=== PATIENT | female | born 1990 | race Caucasian/White ===

== ENCOUNTER 2019-07-17 19:53 | Emergency (ER) | payer SELFPAY ==
[2019-07-17 20:14] VITALS: BP 150/91; PULSE 88; RESP 18; TEMP 37.4; O2SAT 98; BMI 37.4
--- NOTE | 2019-07-17 21:04 | ED_ITS ---
Entered by Radha Pablo, acting as scribe for Deepika Riddle MD Jul 17, 2019 19:53 HPI - General Adult General: Chief complaint: General Medical Stated complaint: 10 weeks preg/cramping Time Seen by Provider: 07/17/19 21:04 Source: patient Mode of arrival: ambulatory Limitations: no limitations History of Present Illness: HPI narrative: 29 yo f came to the er pov for cramping and is 10 weeks . Pt is having cramping in the lower abd. Pt is not in any pain at the moment, Pt is having some normal discharge. Pt said that the cramping it comes and goes. complaint: 10 weeks cramping Location: abdomen (lower abd) Radiation: non-radiation Severity: mild Severity scale (1-10): 1 (no pain) Associated symptoms: Reports no associated symptoms; Deny chest pain, dyspnea, headache(s) or rash Treatments prior to arrival: none Review of Systems General: Reports: other (negative unless marked) Const: Denies: fever ENMT: Denies: throat pain Card: Denies: chest pain Resp: Denies: shortness of breath GI: Reports: abdominal pain (lower abd cramping) and cramping : Denies: flank pain Musc: Denies: neck pain Skin/Breast: Denies: rash Neuro: Denies: headache PFSH ED PFSH: Social History Smoking and tobacco status: current some day smoker Physical Exam Const: COMMON NORMALS: no apparent distress, oriented x3 and healthy appearing HENMT: COMMON NORMALS: normocephalic and head/scalp atraumatic HEAD & SCALP: normocephalic and atraumatic Eye: COMMON NORMALS: PERRL and EOMs intact bilaterally PUPIL: Yes PERRL Neck/C-Spine: COMMON NORMALS: full ROM and supple Chest: COMMONS NORMALS: inspection of chest normal and palpation of chest normal Resp: COMMON NORMALS: normal respiratory effort, no retractions, no use of accessory muscles and clear to auscultation bilaterally AUSCULTATION: clear to auscultation bilaterally Cardio: COMMON NORMALS: regular rate, regular rhythm and no murmurs RATE: regular rate RHYTHM: regular rhythm GI: COMMON NORMALS: normal to inspection, nondistended, normoactive bowel sounds, soft to palpation, non-tender and no masses PALPATION: Yes soft Extremity: COMMON NORMALS: normal to inspection and full ROM Neuro: COMMON NORMALS: oriented x3, moves all extremities and no focal motor deficits Psych: COMMON NORMALS: mental status grossly normal, thought process normal and cooperative THOUGHT PROCESS: normal thought process Skin: COMMON NORMALS: no rashes or lesions noted and no wounds GENERAL SKIN EXAM: no rashes or lesions noted Course Vital Signs: Vital signs: Vital Signs Temperature 99.3 F 07/17/19 20:14 Pulse Rate 76 07/17/19 22:04 Respiratory Rate 14 07/17/19 22:04 Blood Pressure 132/80 07/17/19 22:04 Pulse Oximetry 99 07/17/19 22:04 MDM - General Adult MDM Narrative: Medical decision making narrative: Patient presents here with abdominal cramping in . Patient urinalysis is normal. Patient's bedside ultrasound here showed an IUP consistent with dates. heart rate was in the 150s. Patient is stable for discharge and is to follow-up with primary care doctor in 3 to 5 days return to ER if worsening. Lab Data: Labs: Lab Results 07/17/19 07/17/19 Range/Units 20:48 20:54 Ser , [place]nt 20537.00 mIU/mL Urine Color Yellow (Yellow) Urine Appearance Hazy A (CLEAR) Urine pH 7 (5-7) Ur Specific Gravit y 1.015 (1.005-1.030) Urine Protein Neg (Negative) Urine Glucose (UA) Norm (Normal) Urine Ketones Negative (Negative) Urine Blood Neg (Negative) Urine Nitrate Negative (Negative) Urine Bilirubin Neg (NEGATIVE) Urine Urobilinogen Norm (Negative) mg/dL Ur Leukocyte Jyothi ase Negative (Negative) Urine RBC None (0-2) /hpf Urine WBC 0-4 H (0-5) /hpf Ur Squamous Epith Cells Rare (0-5) Urine Bacteria 2+ H (NONE) Discharge Plan Discharge Patient Disposition: Home, Self-Care Clinical Impression: Abdominal pain affecting Condition: Stable Prescriptions: No Action 28-800 mg-mcg Tablet 1 tab PO DAILY RF: 0 Discharge Orders: Discharge Order (Routine); Ordered 07/17/19 Ordered By: Deepika Riddle Referrals: Iliana Alejandra [Family Provider] - Discharge Diet: Advance as tolerated Discharge Activity: Resume usual activity Patient Instructions: Abdominal Pain (ED) Discharge Date/Time: 07/17/19 22:05 Coding Level of Care Code ED Oven Laborer for Chg Fwd The documentation recorded by the Samy lizarraga Stephanie Lyn, accurately reflects the service I personally performed and the decisions made by , Deepika Riddle MD Jul 17, 2019 19:53
[2019-07-17 21:24] LABS: Add Urine Microscopic? YES; Bilirubin Urine Neg (NEGATIVE); Blood Urine Neg (Negative); Glucose Urine UA Norm (Normal); Ketones Urine Negative (Negative); Leukocyte Esterase Urine Negative (Negative); Nitrate Urine Negative (Negative); Protein Urine Neg (Negative); Specific Gravity, Urine 1.015 (1.005-1.030); Urine Appearance Hazy (CLEAR); Urine Color Yellow (Yellow); Urobilinogen Urine Norm (Negative); pH Urine 7 (5-7)
[2019-07-17 21:32] LABS: Add Urine Culture? No; Bacteria Urine 2+; Squamous Epithelial Cell Urine RARE (0-5); WBC Urine 0-4 /hpf (0-5)
[2019-07-17 22:04] VITALS: BP 132/80; PULSE 76; RESP 14; O2SAT 99
== END 2019-07-17 22:05 | disposition home or self-care (01) ==
PROVIDERS: Emergency Medicine; Emergency Provider Emergency Medicine; Family Provider Nurse Practitioner Family
DX: O26.891 Other specified pregnancy related conditions, first trimester (principal); R10.9 Unspecified abdominal pain; O99.331 Smoking (tobacco) complicating pregnancy, first trimester; Z3A.10 10 weeks gestation of pregnancy
CPT/HCPCS: 12345; 36415; 81001; 84702; 99281; 99282

== ENCOUNTER 2019-11-08 10:30 | Observation (INO) | payer MEDICAID, SELFPAY ==
[2019-11-08 10:30] VITALS: BMI 38.7
[2019-11-08 10:41] VITALS: BP 118/60; PULSE 75
[2019-11-08 10:53] VITALS: BP 118/60; PULSE 86; RESP 20; TEMP 36.8
--- NOTE | 2019-11-10 13:09 | PC.RESP ---
Smoking Cessation information sent to patient.
== END 2019-11-08 11:32 | disposition home or self-care (01) ==
PROVIDERS: Admitting Provider Family Medicine; PCP Family Medicine; Visit Provider Family Medicine
DX: O36.8190 Decreased fetal movements, unspecified trimester, not applicable or unspecified (principal); Z3A.00 Weeks of gestation of pregnancy not specified
CPT/HCPCS: 99211; G0378; G0379

== ENCOUNTER 2020-01-01 11:35 | Outpatient (CLI) | payer MEDICAID, SELFPAY ==
[2020-01-01 11:43] VITALS: RESP 18; TEMP 36.3
[2020-01-01 11:48] VITALS: BMI 38.0
[2020-01-01 12:02] VITALS: BP 124/68; PULSE 92
[2020-01-01 12:17] VITALS: BP 121/74; PULSE 88
[2020-01-01 12:48] VITALS: RESP 18; TEMP 36.3
== END 2020-01-01 12:25 | disposition home or self-care (01) ==
LOC: OPOB 11:39 → OBGYN 11:40
PROVIDERS: PCP Family Medicine; Visit Provider Family Medicine
DX: O24.419 Gestational diabetes mellitus in pregnancy, unspecified control (principal); Z3A.00 Weeks of gestation of pregnancy not specified
CPT/HCPCS: 59025; 99211

== ENCOUNTER 2020-01-08 10:10 | Outpatient (CLI) | payer MEDICAID, SELFPAY ==
[2020-01-08 10:19] VITALS: BMI 38.2
[2020-01-08 10:24] VITALS: BP 144/67; PULSE 93
[2020-01-08 10:40] VITALS: BP 140/72; PULSE 94
[2020-01-08 10:57] VITALS: PULSE 90; O2SAT 98
[2020-01-08 11:02] VITALS: PULSE 91; O2SAT 98
[2020-01-08 11:07] VITALS: BP 140/72; PULSE 91; RESP 17; TEMP 36.7; O2SAT 98
== END 2020-01-08 11:07 | disposition home or self-care (01) ==
LOC: OPOB 10:17 → OBGYN 10:18
PROVIDERS: PCP Family Medicine; Visit Provider Family Medicine
DX: O24.419 Gestational diabetes mellitus in pregnancy, unspecified control (principal); Z3A.00 Weeks of gestation of pregnancy not specified
CPT/HCPCS: 59025; 99211

== ENCOUNTER 2020-01-15 10:11 | Outpatient (CLI) | payer MEDICAID, SELFPAY ==
[2020-01-15 10:11] VITALS: BMI 37.9
[2020-01-15 10:31] VITALS: TEMP 36.3
[2020-01-15 10:41] VITALS: BP 132/78; PULSE 84
[2020-01-15 10:56] VITALS: BP 136/80; PULSE 86
== END 2020-01-15 11:10 | disposition home or self-care (01) ==
LOC: OPOB 10:16 → OBGYN 10:22
PROVIDERS: PCP Family Medicine; Visit Provider Family Medicine
DX: O26.899 Other specified pregnancy related conditions, unspecified trimester (principal); Z3A.00 Weeks of gestation of pregnancy not specified; R10.9 Unspecified abdominal pain
CPT/HCPCS: 59025; 99211

== ENCOUNTER 2020-01-22 09:52 | Outpatient (CLI) | payer MEDICAID, SELFPAY ==
[2020-01-22 10:00] VITALS: RESP 18; TEMP 36.9
[2020-01-22 10:18] VITALS: BP 144/73; PULSE 88
[2020-01-22 10:33] VITALS: BP 149/81; PULSE 81
[2020-01-22 10:48] VITALS: BP 146/73; PULSE 91
[2020-01-22 10:52] VITALS: BMI 38.4
[2020-01-22 10:55] VITALS: BP 146/73; PULSE 91; RESP 18
== END 2020-01-22 11:00 | disposition home or self-care (01) ==
LOC: OPOB 09:58 → OBGYN 09:59
PROVIDERS: PCP Family Medicine; Visit Provider Family Medicine
DX: O24.419 Gestational diabetes mellitus in pregnancy, unspecified control (principal); Z3A.00 Weeks of gestation of pregnancy not specified
CPT/HCPCS: 59025

== ENCOUNTER 2020-01-29 09:51 | Outpatient (CLI) | payer MEDICAID, SELFPAY ==
[2020-01-29 10:05] VITALS: BP 148/92; PULSE 90
[2020-01-29 10:20] VITALS: BP 143/90; PULSE 92
[2020-01-29 10:35] VITALS: BP 142/87; PULSE 93
[2020-01-29 10:50] VITALS: BP 148/92; PULSE 90; TEMP 36.7
[2020-01-29 10:55] VITALS: BMI 37.9
[2020-01-29 12:48] LABS: Urine Creatinine 52 mg/dL (28-217); Urine Protein Random 6 mg/dL
[2020-01-29 13:33] LABS: UPRO/UCREAT Ratio 0.12 mg/mg CR
== END 2020-01-29 10:53 | disposition home or self-care (01) ==
LOC: OPOB 09:57 → OBGYN 09:59
PROVIDERS: PCP Family Medicine; Visit Provider Family Medicine
DX: O24.419 Gestational diabetes mellitus in pregnancy, unspecified control (principal); Z3A.00 Weeks of gestation of pregnancy not specified
CPT/HCPCS: 59025; 82570; 84156; 99211; J2274; J2795; J3010

== ENCOUNTER 2020-01-29 12:25 | Inpatient (IN) | payer MEDICAID, SELFPAY ==
[2020-01-29] VITALS (93 sets, daily range): BP systolic 0–223; BP diastolic 0–128; PULSE 48–120; RESP 18; TEMP 36.7; O2SAT 89–100; BMI 41.7
[2020-01-29] MEDS: dextrose 5%-lactated ringers 1,000 ML 125 ML IV ×2 (13:24→20:15)
[2020-01-29] MEDS: ampicillin 2,000 MG in sodium chloride 0.9% (plus) 50 ML 100 MG IV (13:26)
[2020-01-29] MEDS: miSOPROStol 100 mcg tablet 25 MCG VAGINAL (13:27)
[2020-01-29 13:56] LABS: Glucose Point of Care 99 mg/dL (70-110)
[2020-01-29 14:02] LABS: Basophils % 0.1 %; Eosinophils % 0.1 %; Hematocrit 37.7 % (37.0-47.0); Hemoglobin 12.7 g/dL (11.5-15.3); Lymphocytes # 1.7 10^3/uL (0.8-4.8); Lymphocytes % 20.7 %; Mean Corpuscular HGB Conc 33.7 g/dL (30.0-36.0); Mean Corpuscular Hemoglobin 29.4 pg (28.0-34.0); Mean Corpuscular Volume 87.3 fL (81-99); Mean Platelet Volume 10.7 fL (7.4-10.4); Monocytes # 0.4 10^3/uL (0.2-0.9); Monocytes % 5.3 %; Neutrophils % 73.4 %; Nucleated Red Blood Cells % 0 %; Platelet Count 236 10^3/cmm (130-400); Red Blood Count 4.32 10^6/uL (4.1-5.3); Red Cell Distribution Width 14.7 % (12.1-15.1); White Blood Count 8.3 10^3/uL (4.0-10.0)
[2020-01-29 14:23] LABS: Alanine Aminotransferase 9 U/L (0-33); Albumin Level 3.6 g/dL (3.5-5.2); Alkaline Phosphatase 134 IU/L (35-105); Anion Gap 16.9 (5-19); Aspartate Amino Transferase 15 U/L (0-32); Blood Urea Nitrogen 12 mg/dL (6-20); Calcium 9.4 mg/dL (8.5-10.5); Carbon Dioxide 18 mmol/L (22-29); Chloride 103 mmol/L (98-107); Globulin 3.4 g/dL (1.3-4.6); Glomerular Filtration Rate 119.9 mL/min (90-130); Glucose 104 mg/dL (65-115); Osmolality Calculated 278 mOsm/kg (285-295); Potassium 3.9 mmol/L (3.5-5.1); Sodium 134 mmol/L (136-145); Total Bilirubin 0.3 mg/dL (0.15-1.2); Uric Acid 7.3 mg/dL (2.4-5.7)
[2020-01-29] MEDS: lactated ringers 1,000 ML 999 ML IV ×2 (16:53→18:51)
[2020-01-29] MEDS: ampicillin 1,000 MG in sodium chloride 0.9% (plus) 50 ML 100 MG IV (16:55)
[2020-01-29] MEDS: labetalol 5 mg/mL SDV 20mL 20 MG IVP (18:39)
--- NOTE | 2020-01-29 19:39 | P.ANESASSM_ITS ---
Pre-Anesthetic Assessment Pre-Anesthetic Assessment: Height/Weight: Height 1.55 m Weight 100.244 kg Temp Pulse BP Pulse Ox 98.0 F 78 172/89 99 01/29/20 12:44 01/29/20 19:36 01/29/20 19:36 01/29/20 19:29 Preop Diagnosis: IUP Proposed Procedure: labor epidural Familial anesthetic complications: denies Was Beta Patsy taken within 24 hours: N/A Last Intake: 00:00 Social: Social History: No alcohol and No tobacco Exam: Pre-Anes Outpt Exam: alert, oriented x 3 and clear to auscultation bilaterally Airway: Submandibular: WNL Cervical ROM: WNL MP: 2 Pulmonary: Pulmonary: None reported CV/HEM: CV/HEM: HTN (with ) : : None reported Hepatic: Hepatic: None reported GI: GI: GERD Metabolic: Metabolic: DM (gestational ) Musc/skel: Musc/skel: None reported Neuropsych: Neuropsych: None reported Meds/Allergies Current Medications: Current Medications Generic Name Dose Route Start Last Admin Trade Name Freq PRN Reason Stop Dose Admin Lactated Ringer's 1,000 mls @ 999 m ls/hr 01/29/20 12:41 01/29/20 18:51 Lactated Ringers IV 999 mls/hr .Q1H1M PRN Administration Per L&D Rescitati on Protocol Dextrose/Lactated Ringer's 1,000 mls @ 125 m ls/hr 01/29/20 12:45 01/29/20 13:24 Dextrose 5%-Lact ated Ringers IV 125 mls/hr .Q8H GLORIA Administration Lactated Ringer's 1,000 mls @ 125 m ls/hr 01/29/20 12:45 01/29/20 16:53 Lactated Ringers IV 999 mls/hr .Q8H GLORIA Administration Ampicillin Sodium 1,000 mg/ 50 mls @ 100 mls/ hr 01/29/20 16:44 01/29/20 16:55 Sodium Chloride IV 100 mls/hr Q4H GLORIA Administration Protocol Labetalol HCl 20 mg 01/29/20 18:14 01/29/20 18:39 Trandate IVP 20 mg PRN PRN Administration HYPERTENSION Protocol Misoprostol 25 mcg 01/29/20 12:45 10/05/20 13:27 Cytotec VAGINAL 01/29/20 20:46 25 mcg Q4H GLORIA Administration PFSH Anesthesia PFSH: Social History Smoking and tobacco status: current some day smoker Female Reproductive History: : 1 Data Anesthesia CBC & Chem 7: 01/29/20 13:00 01/29/20 13:00 Other Labs: Laboratory Results - last 48 hr 01/29/20 01/29/20 01/29/20 13:00 13:00 13:42 WBC 8.3 RBC 4.32 Hgb 12.7 Hct 37.7 MCV 87.3 MCH 29.4 MCHC 33.7 RDW 14.7 Plt Count 236 MPV 10.7 H Neut % (Auto) 73.4 Lymph % (Auto) 20.7 [place] % (Auto) 5.3 Eos % (Auto) 0.1 Baso % (Auto) 0.1 Neut # (Auto) 6.10 Lymph # (Auto) 1.7 [place] # (Auto) 0.4 Eos # (Auto) 0.0 Baso # (Auto) 0.0 Nucleated RBC % (auto) 0 Nucleated RBCs # 0.0 Sodium 134 L Potassium 3.9 Chloride 103 Carbon Dioxide 18 L Anion Gap 16.9 BUN 12 Creatinine 0.6 GFR Calculation 119.9 Glucose 104 POC Glucose 99 Calculated Osmolality 278 L Uric Acid 7.3 H Calcium 9.4 Total Bilirubin 0.3 AST 15 ALT 9 Alkaline Phosphatase 134 H Total Protein 7.0 Albumin 3.6 Globulin 3.4 Cardiac Studies: No Data to Display Anesthesia Procedures Epidural: Time Out Performed: Yes Consents Signed: Procedure Consent Consent: requested by attending/covering physician Lumbar Level: L3-L4 Epidural position: sitting Epidural procedure: 1% lidocaine to numb the area (3 cc ), 18 g needle (L3-L4 interspace), negative for paresthesia passed, neg for paresthesia, test dose given (3 ), 0.2% Ropivacaine bolus ml (8 ) and 0.2% Ropiavacaine @ mls/hr (13 mls/hr ) Additional Comments: Patient complete when laid back from epidural Dr. Altman called per nurse
[2020-01-29] MEDS: oxytocin 30 UNIT/500 ML BAG 600 UNIT IV (19:52)
--- NOTE | 2020-01-29 20:11 | P.PCNOB_ITS ---
Delivery Note: Date of delivery: January 29, 2020 Pre-Delivery Course: The patient is a 29-year-old 1 female with known with well-controlled diet controlled gestational diabetes, who presented to the hospital today for a scheduled NST. Her was remarkable only for having gestational diabetes. The remainder of her labs were within normal limits. Her blood type was a positive. At her NST she was noted to have elevated blood pressures multiple times. Her systolic blood pressure was over 160 at times. As result I did a preeclamptic panel which was within normal limits. Her protein creatinine ratio was less than 0.3. The remainder of her labs except for her uric acid within normal limits. She was placed on Cytotec 25 mcg per vagina. An amniotomy was performed. She is given an epidural. She progressed to complete without difficulty. The one blood sugar that was checked was 99. Her elevated blood pressures appear to be associated with anxiety or pain. Her systolic blood pressures intermittently dropped into the 140s but would increase when she became anxious or had contractions. Delivery: DELIVERY: The patient progressed to complete without difficulty. She delivered a male with a weight of 5 pounds 12 ounces with Apgars of 7, 9. The baby was delivered from the GLORIA position. The baby's mouth and nose were suctioned at the site of the perineum. The baby was then completely delivered and placed on the mother's abdomen. The cord was then clamped and cut. There was a nuchal cord x1 which I delivered the baby through. There was no meconium. The placenta and 3 vessel cord were delivered intact shortly thereafter. The perineum and vaginal vault were carefully examined. No lacerations were noted. Both the mother and the baby were in stable condition. Blood loss was 200 and mls Post-Delivery Status: Good A&P Assessment and plan (1) Gestational diabetes mellitus: Status: Acute (2) Gestational hypertension: Status: Acute (3) 38 weeks gestation of : Status: Acute (4) Spontaneous vaginal delivery: Status: Acute Coding Level of Care Code Acute Product Promoter Retail Pet for [facility] Fwd Diagnoses Gestational diabetes mellitus O24.419 Gestational hypertension O13.9 38 weeks gestation of Z3A.38 Spontaneous vaginal delivery O80
[2020-01-29] MEDS: miSOPROStol 200 mcg Tablet 800 MCG PR (20:17)
--- NOTE | 2020-01-29 20:17 | PC.NURSE ---
Dr. Altman at nurses station and informed of two moderate rubs, orders for Cytotec 800mcg PO be given now.
[2020-01-29] MEDS: oxytocin 30 UNIT/500 ML BAG 500 UNIT IV (21:00)
[2020-01-29] MEDS: diphenoxylate/atropine Tablet 2 TAB PO (21:22)
[2020-01-29] MEDS: carboprost tromethamine 250 mcg/mL Amp IM ×2 (21:23→22:27)
[2020-01-29] MEDS: ondansetron 2 mg/ML SDV 2 mL 4 MG IVP (21:37)
--- NOTE | 2020-01-29 21:40 | PC.NURSE ---
Dr. Altman at bedside, order received to start second IV line
[2020-01-29 22:04] LABS: Hematocrit 35.7 % (37.0-47.0); Hemoglobin 12.2 g/dL (11.5-15.3); Mean Corpuscular HGB Conc 34.2 g/dL (30.0-36.0); Mean Corpuscular Hemoglobin 29.4 pg (28.0-34.0); Mean Platelet Volume 10.6 fL (7.4-10.4); Platelet Count 217 10^3/cmm (130-400); Red Blood Count 4.15 10^6/uL (4.1-5.3); Red Cell Distribution Width 14.6 % (12.1-15.1); White Blood Count 16.6 10^3/uL (4.0-10.0)
--- NOTE | 2020-01-29 22:18 | PC.NURSE ---
BP cuff moved to right calf
[2020-01-29 22:32] LABS: Absolute Neutrophil 14.6 10^3/cmm (1.4-6.5); Absolute Segmented Neutrophil 14.1 10/cmm (1.6-7.1); Band Neutrophils Absolute 0.5 10^3/cmm (0.0-1.2); Lymphocytes 11 %; Monocytes Absolute 0.2 10^3/cmm (0.1-0.6); Platelet Estimate Decreased (Normal); Segmented Neutrophils 85 %; Total Cells Counted 100 (0-100)
--- NOTE | 2020-01-29 22:34 | PC.NURSE ---
Bridgette ROOF PAINTER at bedside
--- NOTE | 2020-01-29 22:45 | PC.NURSE ---
Manual BP taken at this time with a reading of 184/106 in right arm, semi fowlers. Dr. Altman and Bridgette Moise DOULA at bedside.
--- NOTE | 2020-01-29 22:50 | PC.NURSE ---
Patient given 5mg Morphine IVP by MALLORY Angeles
--- NOTE | 2020-01-29 22:55 | PC.NURSE ---
Patient given 5 mg versed IVP by Bridgette Moise CRNA.
--- NOTE | 2020-01-29 22:56 | PC.NURSE ---
Patient placed in stirrups and prepped for manual extraction at this time.
--- NOTE | 2020-01-29 22:57 | PC.NURSE ---
Dr. Altman began to extract clots at this time.
--- NOTE | 2020-01-29 23:00 | PC.NURSE ---
Dr. Altman completed extraction at this time. Patient cleaned up and taken out of stirrups.
--- NOTE | 2020-01-29 23:09 | PM.MISC ---
Miscellaneous Note Purpose of Documentation: Dr. Altman at bedside for manual clot evacuation, attempted to re-dose epidural with 20 cc 2% lido with no success. Dr. Altman requested patient to be given 5 cc morphine for comfort during procedure. 5 mg versed given as well. Pt with simple facemask and continuous monitors. Nurse at bedside monitoring patient post hematoma evacuation. See OBIX system for vitals
[2020-01-30] VITALS (57 sets, daily range): BP systolic 108–146; BP diastolic 58–85; PULSE 79–110; RESP 16–18; TEMP 36.7–37.2; O2SAT 96–99
--- NOTE | 2020-01-30 02:33 | PC.NURSE ---
MD in global consumer sector vice president room, updated on scant bleeding. MD orders to continue to monitor.
--- NOTE | 2020-01-30 03:30 | PC.NURSE ---
Dr. Altman in weatherization administrator room, updated on scant bleeding with firm uterus, vitals and patient being moved up to post . MD orders for one IV to be saline locked and run D5LR at 100mls/hr in other IV site.
[2020-01-30 04:07] LABS: Basophils % 0.1 %; Hemoglobin 10.4 g/dL (11.5-15.3); Lymphocytes # 1.6 10^3/uL (0.8-4.8); Lymphocytes % 11.9 %; Mean Corpuscular HGB Conc 33.5 g/dL (30.0-36.0); Mean Corpuscular Hemoglobin 29.6 pg (28.0-34.0); Mean Corpuscular Volume 88.3 fL (81-99); Mean Platelet Volume 10.6 fL (7.4-10.4); Monocytes # 0.7 10^3/uL (0.2-0.9); Neutrophils # 11.36 10^3/uL (1.8-7.7); Neutrophils % 82.8 %; Nucleated Red Blood Cells % 0 %; Platelet Count 186 10^3/cmm (130-400); Red Blood Count 3.51 10^6/uL (4.1-5.3); Red Cell Distribution Width 14.9 % (12.1-15.1); White Blood Count 13.7 10^3/uL (4.0-10.0)
--- NOTE | 2020-01-30 04:32 | PC.NURSE ---
Pt. colin to room via wheelchair.
--- NOTE | 2020-01-30 05:48 | PM.OBGYPN ---
SHOE REPAIR COBBLER Subjective Subjective: Interval history: The patient is alert. She appears comfortable. Her heart has a regular rate and rhythm with no murmurs appreciated. Lungs are clear to auscultation bilaterally. Her fundus is firm and below the umbilicus. After the patient's delivery last night the patient had done very well. Bleeding during her actual delivery had been within normal limits. When I left the room she has had no bleeding. I was contacted later and told that she was having substantial bleeding. I immediately came to the hospital. The patient continued to bleed intermittently and during that time received Cytotec, 3 doses of Hemabate, tranexamic acid twice, and 2 bags of Pitocin. Despite that she continued to have moderate bleeding. As result I did a manual evacuation of her uterus where I found multiple clots that were completely removed. Anesthesia was there and we did give the patient 5 morphine and Versed and she tolerated the procedure quite well. After removing the clots from her uterus, the patient did much better. Her bleeding was dramatically reduced. She has done well for the rest the night, and has only had a pad on for the last several hours. Labor: Station: +1 Amniotic Membrane Status: Ruptured Monitor Mode: External Contraction Pattern: Regular Status: Category ll Vitals/I&O/Wt Last Vital Signs Temp 98.9 F 01/30/20 03:30 Pulse 79 01/30/20 03:30 Resp 16 01/30/20 03:30 BP 123/85 01/30/20 03:30 Pulse Ox 99 01/30/20 03:30 01/29/20 01/29/20 01/30/20 14:59 22:59 06:59 Intake Total 1466.25 / 1466.25 110 / 1576.25 Output Total 100 / 100 925 / 1025 Balance 1366.25 / 1366.25 -815 / 551.25 Weight last 48 hrs Weight 221 lb Physical Exam Narrative: EXAM NARRATIVE: The patient is alert. She appears comfortable. Her heart has a regular rate and rhythm with no murmurs appreciated. Lungs are clear to auscultation bilaterally. Her fundus is firm and below the umbilicus. Urinary Catheter Management^: Contreras: Cath Placed During This Visit: yes, but has since been removed by the nurse Reason for Continuing Indwelling Catheter: Other Urinary Catheter Date of Insertion: 01/29/20 Urinary Catheter Time of Insertion: 19:25 Date Urinary Catheter Removed: 01/29/20 Time Urinary Catheter Discontinued: 19:35 Data : 01/30/20 03:40 01/29/20 13:00 A&P Assessment and plan (1) 38 weeks gestation of : Status: Acute (2) Gestational hypertension: Status: Acute (3) Gestational diabetes mellitus: The patient has had excellent control of her diabetes. She has had diet controlled. There have been no concerns. We will check her blood sugar intermittently during her hospital stay. Status: Acute (4) hemorrhage: Her hemorrhage appears to be completely resolved at this time. Her blood counts are remarkably good. We will continue to monitor until tomorrow morning and address any further that she has. Status: Acute Attestations Medical Necessity Statement*: Patient will require at least 1 more night stay in the hospital for care. Especially given her hemorrhage Coding Level of Care Code Acute Air Intelligence Officer for g Fwd Diagnoses 38 weeks gestation of Z3A.38 Gestational hypertension O13.9 Gestational diabetes mellitus O24.419 hemorrhage O72.1
[2020-01-30] MEDS: diphenoxylate/atropine Tablet 2 TAB PO (06:24)
[2020-01-30] MEDS: prenatal vitamin Capsule 1 CAP PO (08:41)
--- NOTE | 2020-01-30 11:16 | ANE.PACU2 ---
Inpatient post-anesthesia follow up: Airway intact: Yes Vital signs: Temperature 98.3 F Pulse Rate 92 Respiratory Rate 16 Blood Pressure 108/62 Pulse Oximetry 97 Oxygen Delivery Me thod Room Air Oxygen Flow Rate Fraction of Inspir ed Oxygen Hydration adequate: Yes Nausea and vomiting: No Pain level: 1 Mental status: Baseline Additional Comments: No signs of infection at epidural site, no numbess/weakness in legs, urinating with out eugene, no headaches
[2020-01-30 11:23] LABS: Glucose Point of Care 135 mg/dL (70-110)
[2020-01-30 17:02] LABS: Glucose Point of Care 119 mg/dL (70-110)
[2020-01-30 22:09] LABS: Glucose Point of Care 125 mg/dL (70-110)
[2020-01-30] MEDS: ibuprofen 800 mg tablet PO (22:25)
--- NOTE | 2020-01-31 09:48 | PC.RESP ---
SMOKING CESSATION INFORMATION SENT TO PATIENT.
[2020-01-31 10:36] VITALS: BP 126/81; PULSE 85; RESP 16; TEMP 36.9; O2SAT 99
--- NOTE | 2020-02-09 08:57 | PM.OBGYDC ---
Discharge Providers FIXED INCOME PORTFOLIO MANAGER Date of Admission: 01/29/20 12:25 Date of Discharge: 02/09/20 Attending Provider at Admission: Wilmer Altman MD Attending Provider at Discharge: Wilmer Altman MD Primary Care Provider: Wilmer Altman MD Diagnoses at Discharge Discharge Diagnosis (1) 38 weeks gestation of : Status: Resolved (2) Gestational hypertension: Status: Resolved (3) Gestational diabetes mellitus: Status: Resolved (4) hemorrhage: Status: Resolved Reason for Visit Reason for Visit: Induction of labor Hospital Course Hospital Course: The patient presented to the hospital for NST, where she was found to have elevated blood pressures. Her systolic blood pressure was greater than 160 multiple times. As result I elected to proceed with an induction. The patient was induced with Cytotec. An amniotomy was performed. She progressed to complete and had an unremarkable delivery of a healthy-appearing . The remainder of her hospital stay was within normal limits. Her blood sugars were excellent throughout. Her bleeding was within normal limits. Her pain was well controlled. Information Peripartum Data: Delivery Method: Vaginal Physical Exam Narrative: EXAM NARRATIVE: The patient is alert. She appears comfortable. Her heart has a regular rate and rhythm with no murmurs appreciated. Lungs are clear to auscultation bilaterally. Her fundus is firm and below the umbilicus. Urinary Catheter Management^: Contreras: Cath Placed During This Visit: yes, but has since been removed by the nurse Reason for Continuing Indwelling Catheter: Other Urinary Catheter Date of Insertion: 01/29/20 Urinary Catheter Time of Insertion: 19:25 Date Urinary Catheter Removed: 01/29/20 Time Urinary Catheter Discontinued: 19:35 Discharge Data Data Completed and Pending: Her preeclamptic panel was within normal limits with exception of a mildly increased uric acid. Her complete blood count on admission demonstrated a hemoglobin of 12.2 with a platelet count of 217. After the delivery her white hemoglobin was 10.4 with a platelet count of 186 Vitals: Last Vital Signs Temp 98.4 F 01/31/20 10:36 Pulse 85 01/31/20 10:36 Resp 16 01/31/20 10:36 BP 126/81 01/31/20 10:36 Pulse Ox 99 01/31/20 10:36 Discharge Plan Discharge Patient Disposition: Home Condition: Stable Prescriptions: New ibuprofen 800 mg Tablet 800 mg PO TID Qty: 30 RF: 0 Continued 28-800 mg-mcg Tablet 1 tab PO DAILY RF: 0 Discharge Orders: Discharge Order (Routine); Ordered 01/31/20 Ordered By: Wilmer Altman Referrals: Wilmer Altman MD [Primary Care Provider] - 03/12/20 12:15 pm Discharge Diet: Usual diet Discharge Activity: Resume usual activity Patient Instructions: , Perineal Care (DC), Expression, Collection and Storage of Breastmilk (DC), and Nipple Soreness (DC), Bleeding (GEN), OB Discharge Report, OB Care at Home, OB Vaginal Deliveries, Abnormal Bleeding, Depression Discharge Date/Time: 01/31/20 10:45 Discharge Attestations FIXED INCOME PORTFOLIO MANAGER Time Spent in Discharge Care*: less than 30 min Coding Level of Care Code Acute Plant Accountant for Chg Fwd Diagnoses 38 weeks gestation of Z3A.38 Gestational hypertension O13.9 Gestational diabetes mellitus O24.419 hemorrhage O72.1
== END 2020-01-31 10:45 | disposition home or self-care (01) | DRG 806 ==
PROVIDERS: Admitting Provider Family Medicine; Family Provider Family Medicine; PCP Family Medicine; Visit Provider Family Medicine
DX: O24.420 Gestational diabetes mellitus in childbirth, diet controlled (principal); O72.1 Other immediate postpartum hemorrhage; Z37.0 Single live birth; O13.4 Gestational [pregnancy-induced] hypertension without significant proteinuria, complicating childbirth; Z3A.38 38 weeks gestation of pregnancy; O69.2XX0 Labor and delivery complicated by other cord entanglement, with compression, not applicable or unspecified
CPT/HCPCS: 12345; 36415; 36416; 51702; 59025; 59409; 80053; 82962; 84550; 85007; 85025; 85027; 96372; 96375; 98960; 99211; J0290; J2250; J2274; J2405; J2795; J3490

== ENCOUNTER 2024-01-17 15:00 | Outpatient (CLI) | payer MEDICAID, SELFPAY ==
[2024-01-17 15:00] VITALS: BMI 40.5
[2024-01-17 15:30] VITALS: BP 127/78; PULSE 72
== END 2024-01-17 15:38 | disposition home or self-care (01) ==
LOC: OPOB 15:04 → OBGYN 15:04
PROVIDERS: PCP Family Medicine; Visit Provider Family Medicine
DX: O36.8190 Decreased fetal movements, unspecified trimester, not applicable or unspecified (principal); Z3A.00 Weeks of gestation of pregnancy not specified
CPT/HCPCS: 99211

== ENCOUNTER 2024-02-18 17:55 | Inpatient (IN) | payer MEDICAID, SELFPAY ==
[2024-02-18] VITALS (14 sets, daily range): BP systolic 117–186; BP diastolic 67–110; PULSE 72–92; BMI 41.8
--- NOTE | 2024-02-18 17:12 | USR_ITS ---
PROCEDURE INFORMATION: Exam: US , Limited Exam date and time: 02/18/2024 5:32 PM Age: 33 years old Clinical indication: Lmp or gestational age (in weeks): 30; Antepartum complications; Other: No fht; ; Additional info: Decreased movement, bedside US no fht visualized. US to confirm. trisomy TECHNIQUE: Imaging protocol: Real-time ultrasound of the maternal uterus with image documentation. Exam focused on the clinical indication. COMPARISON: US OB >= 14 weeks fetus [id number] 10/03/2019 1:32 PM FINDINGS: Gestation: Intrauterine gestation. heart rate: No heartbeat detected consistent with demise. presentation and position: Breech presentation. MATERNAL: Soft tissues: Edematous soft tissues in the fetus consistent with demise. US/US OB limited [id number] IMPRESSION: 1. No heartbeat detected consistent with demise. 2. Edematous soft tissues in the fetus consistent with demise.
[2024-02-18 18:29] LABS: Basophils % 0.2 %; Eosinophils # 0.1 10^3/uL (0.0-0.8); Eosinophils % 0.9 %; Hematocrit 37.7 % (36-47); Lymphocytes % 22.3 %; Mean Corpuscular HGB Conc 31.6 g/dL (30-55); Mean Corpuscular Hemoglobin 25.9 pg (27-33); Mean Corpuscular Volume 82.1 fl (85-98); Mean Platelet Volume 10.5 fL (7.4-10.4); Monocytes # 0.5 10^3/uL (0.2-0.9); Monocytes % 5.6 %; Neutrophils # 6.46 10^3/uL (1.8-7.7); Neutrophils % 70.7 %; Nucleated Red Blood Cells % 0 %; Platelet Count 266 10^3/cmm (157-399); Red Blood Count 4.59 10^6/uL (3.85-5.65); Red Cell Distribution Width 16.3 % (12.1-15.1); White Blood Count 9.14 10^3/uL (3.29-11.43)
[2024-02-18 18:47] LABS: Alanine Aminotransferase 10 U/L (0-33); Albumin Level 3.5 g/dL (3.5-5.2); Alkaline Phosphatase 92 U/L (35-105); Anion Gap 16.9 (5-19); Aspartate Amino Transferase 15 U/L (0-32); Blood Urea Nitrogen 6 mg/dL (6-20); Calcium 8.9 mg/dL (8.5-10.5); Carbon Dioxide 21 mmol/L (22-29); Chloride 103 mmol/L (98-107); Creatinine Clr Calc Pharmacy 165.3348; Glomerular Filtration Rate 116.6 mL/min (90-130); Glucose 105 mg/dL (65-115); Osmolality Calculated 282 mOsm/kg (285-295); Potassium 3.9 mmol/L (3.5-5.1); Sodium 137 mmol/L (136-145); Total Bilirubin 0.2 mg/dL (0.15-1.2); Total Protein 7.5 g/dL (6.6-8.7); Uric Acid 5.5 mg/dL (2.4-5.7)
[2024-02-18 19:41] LABS: Bilirubin Urine Negative (Negative); Blood Urine Negative (Negative); Glucose Urine UA Negative (Normal); Ketones Urine Negative (Negative); Leukocyte Esterase Urine 2+ (Negative); Nitrate Urine Negative (Negative); Protein Urine Negative (Negative); Urine Appearance Clear (CLEAR); Urine Color Yellow (Yellow); pH Urine 7.5 (5-7)
[2024-02-18 19:44] LABS: Add Urine Microscopic? YES; Bacteria Urine None Seen /hpf; Hyaline Casts Urine 1.65 /lpf; WBC Urine 21-50 /hpf (0-5)
[2024-02-18 19:53] LABS: Add Urine Culture? Yes
[2024-02-18 20:01] LABS: Urine Creatinine 116 mg/dL (28-217); Urine Protein Random 12 mg/dL
[2024-02-18] MEDS: miSOPROStol 100 mcg tablet 25 MCG VAGINAL (20:06)
[2024-02-19] VITALS (24 sets, daily range): BP systolic 114–190; BP diastolic 69–98; PULSE 68–94; RESP 18
[2024-02-19] MEDS: miSOPROStol 100 mcg tablet 25 MCG VAGINAL ×2 (00:11→04:33)
[2024-02-19] MEDS: promethazine 25 mg/mL SDV 1 mL IM (01:59)
[2024-02-19] MEDS: morphine 4 mg/mL SDV 1 mL 8 MG IM (01:59)
[2024-02-19] MEDS: fentaNYL 50 mcg/mL INJ 2mL IVP (09:10)
--- NOTE | 2024-02-19 09:25 | PM.OPHPUD ---
Labor & Delivery H&P Update Date of Procedure: February 19, 2024 Date H&P Performed: 02/15/24 Changes to previous documentation: The patient no longer has heart tones as documented by Doppler and ultrasound. Admission Diagnosis: demise of a fetus with known fatal anomalies Planned procedure: Induction of demise Other information: The patient's is remarkable for having a trisomy 13 fetus with known anomalies. She has been evaluated by [facility] in [place]. The patient has also had some problems with elevated blood pressures. On arrival at the hospital should her blood pressures are elevated, but after she was able to calm down, her blood pressures did normalize. Her preeclamptic panel was unremarkable. Related Problem List Diagnoses (1) 30 weeks gestation of : (2) demise, greater than 22 weeks, antepartum: (3) Fetus with trisomy 13, single gestation: A&P Assessment and plan (1) 30 weeks gestation of : Status: Acute (2) demise, greater than 22 weeks, antepartum: We will proceed with induction. Her cervix is unfavorable at this time, and we will initiate Cytotec. The fetus was noted to have anomalies and is trisomy 13. We anticipated that it may not survive until delivery. I have discussed with the patient and her partner the process will go through. She and her partner have no further questions. Status: Acute Qualifiers: Fetus number: single or unspecified fetus Qualified Code(s): O36.4XX0 - Maternal care for intrauterine , not applicable or unspecified (3) Fetus with trisomy 13, single gestation: Status: Acute
[2024-02-19] MEDS: oxytocin 30 UNIT/500 ML BAG 600 UNIT IV (09:46)
--- NOTE | 2024-02-19 09:56 | PM.DELIVERY ---
Delivery Note: Date of delivery: February 19, 2024 Pre-delivery diagnoses: 33-year-old 2 para 1-0-0-1 at 30 weeks with a trisomy 13 fetus with demise in breech position. Post-delivery diagnoses: Status post spontaneous breech vaginal delivery of trisomy 13 with known demise Procedure: Breech vaginal delivery Delivering Physician: Wilmer Altman Estimated blood loss (mL): 20 Post Delivery Diagnoses: demise, greater than 22 weeks, antepartum: Qualifiers: Fetus number: single or unspecified fetus Qualified Code(s): O36.4XX0 - Maternal care for intrauterine , not applicable or unspecified Pre-Delivery Course: The patient presented to the hospital with concerns that she had not felt the fetus move. After checking with Dopplers, no heart tones were noted. An ultrasound was done which confirmed that there were no heart tones. Cytotec was then given. An amniotomy was performed. The patient then progressed to complete without difficulty. Delivery: DELIVERY: The patient progressed to complete without difficulty. She delivered a female trisomy 13 with a weight of 850 g, Apgars of 0 and 0. The baby was delivered from the breech position. The cord was then clamped and cut and the baby was placed on mother's abdomen. There was no nuchal cord. The placenta was delivered intact shortly thereafter. The perineum and vaginal vault were carefully examined. No lacerations were noted. The mother is in stable condition. The baby is with the mother, her partner, and their family. Post-Delivery Status: Good History History History 2 Term 1 0 Miscarriages/Ectopic 0 Living Children 1 A&P Assessment and plan (1) 30 weeks gestation of : (2) Fetus with trisomy 13, single gestation: (3) demise, greater than 22 weeks, antepartum: Qualifiers: Fetus number: single or unspecified fetus Qualified Code(s): O36.4XX0 - Maternal care for intrauterine , not applicable or unspecified (4) Breech presentation delivered: As long as the patient has a good day and there are no complications or issues, we will plan her going home this evening. Coding Level of Care Code Acute Code for Chg Fwd Diagnoses 30 weeks gestation of Z3A.30 Fetus with trisomy 13, single gestation O35.11X0 demise, greater than 22 weeks, antepartum, single or unspecified fetus O36.4XX0 Fetus number: single or unspecified fetus Breech presentation delivered O32.1XX0
--- NOTE | 2024-02-19 10:06 | P.DS_ITS ---
Discharge Providers SPECIAL EDUCATION SUPERINTENDENT Date of Admission: 02/18/24 17:55 Date of Discharge: 02/19/24 Attending Provider at Admission: Aquiles Altman MD Attending Provider at Discharge: Aquiles Altman MD Primary Care Provider: Aquiles Altman MD Diagnoses at Discharge Discharge Diagnosis (1) 30 weeks gestation of : Status: Acute (2) Fetus with trisomy 13, single gestation: Status: Acute (3) demise, greater than 22 weeks, antepartum: Status: Acute Qualifiers: Fetus number: single or unspecified fetus Qualified Code(s): O36.4XX0 - Maternal care for intrauterine , not applicable or unspecified (4) Breech presentation delivered: Status: Acute Reason for Visit Reason for Visit: Decreased Movement Hospital Course Hospital Course The patient presented to the hospital with a demise of a known trisomy 13 infant. She was placed on Cytotec 25 mcg. An amniotomy was performed. She progressed to complete and had an unremarkable breech delivery of a 850 g . The delivery of the baby and the placenta were unremarkable. Her course was also unremarkable. Physical Exam Narrative: The patient is alert. She appears comfortable. Her heart has a regular rate and rhythm with no murmurs appreciated. Lungs are clear to auscultation bilaterally. Her fundus is firm and below the umbilicus. History History History 2 Term 1 0 Miscarriages/Ectopic 0 Living Children 1 Discharge Data Studies Completed and Pending Completed Studies During Hospitalization Category Date Time Status US OB limited [id number] Stat Ultrasound 02/18/24 17:12 Completed Pending at discharge Category Date Time Status Retype for Patiets ABO/Rh Routine Lab 02/18/24 20:49 Ordered Urine Culture Stat Lab 02/18/24 19:28 Received Radiology Impressions Obstetrics Ultrasound 02/18/24 17:12 IMPRESSION: 1. No heartbeat detected consistent with demise. 2. Edematous soft tissues in the fetus consistent with demise. ADDENDUM: 02/18/24 0806 THIS REPORT CONTAINS FINDINGS THAT MAY BE CRITICAL TO PATIENT CARE. The findings were verbally communicated via telephone conference with AQUILES ALTMAN at 6:54 PM CDT on 02/18/2024. The findings were acknowledged and understood. Laboratory Results WBC 9.14 10^3/uL (3.29-11.43) 02/18/24 18:13 RBC 4.59 10^6/uL (3.85-5.65) 02/18/24 18:13 Hgb 11.90 g/dL (11.27-16.99) 02/18/24 18:13 Hct 37.7 % (36-47) 02/18/24 18:13 MCV 82.1 fl (85-98) L 02/18/24 18:13 MCH 25.9 pg (27-33) L 02/18/24 18:13 MCHC 31.6 g/dL (30-55) 02/18/24 18:13 RDW 16.3 % (12.1-15.1) H 02/18/24 18:13 Plt Count 266 10^3/cmm (157-399) 02/18/24 18:13 MPV 10.5 fL (7.4-10.4) H 02/18/24 18:13 Neut % (Auto) 70.7 % 02/18/24 18:13 Lymph % (Auto) 22.3 % 02/18/24 18:13 [place] % (Auto) 5.6 % 02/18/24 18:13 Eos % (Auto) 0.9 % 02/18/24 18:13 Baso % (Auto) 0.2 % 02/18/24 18:13 Neut # (Auto) 6.46 10^3/uL (1.8-7.7) 02/18/24 18:13 Lymph # (Auto) 2.0 10^3/uL (0.8-4.8) 02/18/24 18:13 [place] # (Auto) 0.5 10^3/uL (0.2-0.9) 02/18/24 18:13 Eos # (Auto) 0.1 10^3/uL (0.0-0.8) 02/18/24 18:13 Baso # (Auto) 0.0 10^3/uL (0.0-0.1) 02/18/24 18:13 Nucleated RBC % (auto) 0 % 02/18/24 18:13 Nucleated RBCs # 0.0 /100WBC 02/18/24 18:13 Sodium 137 mmol/L (136-145) 02/18/24 18:13 Potassium 3.9 mmol/L (3.5-5.1) 02/18/24 18:13 Chloride 103 mmol/L (98-107) 02/18/24 18:13 Carbon Dioxide 21 mmol/L (22-29) L 02/18/24 18:13 Anion Gap 16.9 (5-19) 02/18/24 18:13 BUN 6 mg/dL (6-20) 02/18/24 18:13 Creatinine 0.6 mg/dL (0.5-0.9) 02/18/24 18:13 GFR Calculation 116.6 mL/min (90-130) 02/18/24 18:13 Glucose 105 mg/dL (65-115) 02/18/24 18:13 Calculated Osmolality 282 mOsm/kg (285-295) L 02/18/24 18:13 Uric Acid 5.5 mg/dL (2.4-5.7) 02/18/24 18:13 Calcium 8.9 mg/dL (8.5-10.5) 02/18/24 18:13 Total Bilirubin 0.2 mg/dL (0.15-1.2) 02/18/24 18:13 AST 15 U/L (0-32) 02/18/24 18:13 ALT 10 U/L (0-33) 02/18/24 18:13 Alkaline Phosphatase 92 U/L (35-105) 02/18/24 18:13 Total Protein 7.5 g/dL (6.6-8.7) 02/18/24 18:13 Albumin 3.5 g/dL (3.5-5.2) 02/18/24 18:13 Globulin 4.0 g/dL (1.3-4.6) 02/18/24 18:13 Urine Color Yellow (Yellow) 02/18/24 19:28 Urine Appearance Clear (CLEAR) 02/18/24:28 Urine pH 7.5 (5-7) 02/18/24:28 Ur Specific [place] 1.020 (1.005-1.030) 02/18/24 19:28 Urine Protein Negative (Negative) 02/18/24 19: Urine Glucose (UA) Negative (Normal) 02/18/24 19:28 Urine Ketones Negative (Negative) 02/18/24 19:28 Urine Blood Negative (Negative) 02/18/24 19:28 Urine Nitrate Negative (Negative) 02/18/24 19:28 Urine Bilirubin Negative (Negative) 02/18/24 19:28 Urine Urobilinogen 1.0 mg/dL (Negative) 02/18/24 19:28 Ur Leukocyte Esterase 2+ (Negative) A 02/18/24 19:28 Urine RBC 3-5 /hpf (0-2) 02/18/24 19:28 Urine WBC 21-50 /hpf (0-5) H 02/18/24 19:28 Ur Squamous Epith Cells 6-10 /hpf (0-5) 02/18/24 19:28 Amorphous Sediment Not Reportable 02/18/24 19:28 Urine Bacteria None seen /hpf (NONE) 02/18/24 19:28 Hyaline Casts 1.65 /lpf 02/18/24 19:28 U Random Total Protein 12 mg/dL 02/18/24 19:28 Urine Creatinine 116 mg/dL (28-217) 02/18/24 19:28 Protein/Creatinin Ratio 0.10 mg/mg CR 02/18/24 19:28 Blood Type A Positive 02/18/24 18:13 Rho(D) Type Rh positive 02/18/24 18:13 Antibody Screen Negative 02/18/24 18:13 Vitals Last Vital Signs Pulse 79 02/19/24 09:56 Resp 18 02/19/24 09:10 BP 153/91 02/19/24 09:56 O2 Del Method Room Air 02/19/24 03:06 Results Labs OB ([facility]): Obstetrics US 02/18/24 Blood Type A Positive 02/18/24 Antibody Screen Negative 02/18/24 Hct 37.7 % (36-47) 02/18/24 Hgb 11.90 g/dL (11.27-16.99) 02/18/24 Rho(D) Type Rh positive 02/18/24 Plt Count 266 10^3/cmm (157-399) 02/18/24 Uric Acid 5.5 mg/dL (2.4-5.7) 02/18/24 Micro Urine Specimen 02/18/24 Discharge Plan Discharge Patient Disposition: Home Condition: Stable Prescriptions: New ibuprofen 800 mg tablet 800 mg PO Q8H Qty: 45 0RF Continued 28-800 mg-mcg Tablet 1 tab PO DAILY Discontinued ibuprofen 800 mg Tablet 800 mg PO TID Qty: 30 0RF Discharge Orders: Discharge Order (Routine); Ordered 02/19/24 Ordered By: Aquiles Altman Referrals: Aquiles Altman MD [Primary Care Provider] - 02/23/24 Discharge Diet: Usual diet Discharge Activity: Resume usual activity and Limit activity as instructed Patient Instructions: Opioid Safety Discharge Attestations SPECIAL EDUCATION SUPERINTENDENT Time Spent in Discharge Care*: less than 30 min Coding Level of Care Code Acute Code for Chg Fwd Diagnoses 30 weeks gestation of Z3A.30 Fetus with trisomy 13, single gestation O35.11X0 demise, greater than 22 weeks, antepartum, single or unspecified fetus O36.4XX0 Fetus number: single or unspecified fetus Breech presentation delivered O32.1XX0
[2024-02-19] MEDS: HYDROcodone-acetaminophen 5-325 mg Tablet PO (12:38)
[2024-02-19] MEDS: benzocaine-menthol 78 gm Canister 1 SPRAY TOPICAL (12:39)
--- NOTE | 2024-02-19 13:24 | PC.NURSE ---
delivery at 0940. weight 850g. 13.25 in long. Head 7.5 in. chest 7.75 in.
[2024-02-19] MEDS: ibuprofen 800 mg tablet PO (15:44)
== END 2024-02-19 18:13 | disposition home or self-care (01) | DRG 807 ==
LOC: OPOB 17:55 → OBGYN 17:55
PROVIDERS: Admitting Provider Family Medicine; PCP Family Medicine; Visit Provider Family Medicine
DX: O36.4XX0 Maternal care for intrauterine death, not applicable or unspecified (principal); Z37.1 Single stillbirth; O32.1XX0 Maternal care for breech presentation, not applicable or unspecified; Z3A.30 30 weeks gestation of pregnancy; O35.11X0 Maternal care for (suspected) chromosomal abnormality in fetus, Trisomy 13, not applicable or unspecified
CPT/HCPCS: 36415; 59025; 59409; 76815; 80053; 81001; 82570; 84156; 84550; 85025; 86850; 86900; 87077; 87086; 87186; 96372; 96374; 99211; J2270; J2550; J2590; J3010

== ENCOUNTER 2024-09-12 19:50 | Emergency (ER) | payer MEDICAID, SELFPAY ==
--- NOTE | 2024-09-12 19:59 | USR_ITS ---
PROCEDURE INFORMATION: Exam: US Duplex Right Lower Extremity Veins, Limited Exam date and time: 09/12/2024 8:47 PM Age: 34 years old Clinical indication: Edema, localized; Lower extremity, right; Additional info: Leg swelling TECHNIQUE: Imaging protocol: Real-time duplex ultrasound of the right extremity with 2-D gonzalez scale, color Doppler flow and spectral waveform analysis including responses to compression and other maneuvers (when performed) with image documentation. Limited exam was focused on the right lower extremity veins. COMPARISON: US OB limited [id number] 02/18/2024 5:32 PM FINDINGS: Right deep veins: Unremarkable. The common femoral, femoral, proximal profunda femoral, popliteal, posterior tibial and peroneals veins are patent without thrombus. Normal Doppler waveforms. Normal compressibility and/or augmentation response. Superficial veins: Greater saphenous vein at the saphenofemoral junction is patent without thrombus. Soft tissues: Unremarkable. US/[place] [id number] IMPRESSION: No sonographic evidence of deep vein thrombosis.
[2024-09-12 20:01] VITALS: BP 163/98; PULSE 97; RESP 14; TEMP 36.5; O2SAT 98
--- NOTE | 2024-09-12 20:10 | W.ED.EXTPRO ---
HPI - Extremity Problem General: Chief complaint: Extremity Problem,Nontraumatic Stated complaint: R leg swelling, discoloration, tingling Time Seen by Provider: 09/12/24 20:02 Source: patient Mode of arrival: ambulatory Limitations: no limitations History of Present Illness: 34-year-old female states she has noticed over the last few days some swelling to her right lower leg mainly over the anterior portion she has had some slight pain as well. Denies any injuries denies any fevers no history of blood clots. Associated symptoms: Deny chest pain, fever(s) or rash Related Data Home Medications ?Medication ?Instructions ?Recorded ?Confirmed vit no.133-ferrous 1 tab PO DAILY 07/17/19 01/15/20 fumarate 28 mg-folic acid 800 mcg tablet () Previous Rx's ?Medication ?Instructions ?Recorded ibuprofen 800 mg tablet 800 mg PO Q8H #45 tabs 02/19/24 Allergies Allergy/AdvReac Type Severity Reaction Status Date / Time No Known Allergies Allergy Verified 09/12/24 20:05 Review of Systems Const: Denies: fever(s), chills, body aches or change in appetite ENMT: Denies: throat pain or dental pain Card: Denies: chest pain Resp: Denies: dyspnea GI: Denies: abdominal pain, nausea, vomiting or diarrhea Musc: Reports: extremity swelling; Denies: neck pain or back pain Skin/Breast: Denies: rash Neuro: Denies: headache(s) [facility] ED PFSH: Medical History (Updated 09/12/24 @ 21:41 by Deepika Riddle MD) Fetus with trisomy 13, single gestation demise, greater than 22 weeks, antepartum Social History Smoking and tobacco/nicotine status: current some day tobacco/nicotine user Female Reproductive History: Date of last menstrual period: 09/02/24 Physical Exam Const: COMMON NORMALS: no acute distress, patient oriented x3 and healthy appearing HENMT: COMMON NORMALS: normocephalic and atraumatic HEAD & SCALP: normocephalic and atraumatic Eye: COMMON NORMALS: conjunctivae normal CONJUNCTIVA: Yes conjunctivae normal Neck/C-Spine: COMMON NORMALS: full ROM and supple Chest: COMMONS NORMALS: normal inspection of the chest Resp: COMMON NORMALS: normal respiratory effort Cardio: COMMON NORMALS: regular rate RATE: regular rate Extremity: COMMON NORMALS: full ROM NARRATIVE EXTREMITY EXAM: Swelling noted to right lower leg no warmth to touch distal pulses sensation intact. Neuro: COMMON NORMALS: patient oriented x3, moves all extremities and no focal motor deficits Psych: COMMON NORMALS: mental status grossly normal, Normal thought process present and cooperative THOUGHT PROCESS: Normal thought process present Skin: COMMON NORMALS: no rashes or lesions noted and no wounds GENERAL SKIN EXAM: no rashes or lesions noted Course Vital Signs: Vital signs: Vital Signs Temperature 97.7 F 09/12/24 20:01 Pulse Rate 97 09/12/24 20:01 Respiratory Rate 14 09/12/24 20:01 Blood Pressure 163/98 09/12/24 20:01 Pulse Oximetry 98 09/12/24 20:01 MDM - Extremity (Nontraumatic) Medical Decision Making Patient presents here with some swelling to her right leg ultrasound showed no DVT no signs of cellulitis patient stable for discharge follow-up PCP return if worsening. Lab Data Radiology Impressions Venous Duplex 09/12/24 19:59 IMPRESSION: No sonographic evidence of deep vein thrombosis. All radiology interpretation(s) finalized by discharge Discharge Plan Discharge Patient Disposition: Home Clinical Impression: Lower extremity edema Condition: Stable Prescriptions: No Action 28-800 mg-mcg Tablet 1 tab PO DAILY ibuprofen 800 mg tablet 800 mg PO Q8H Qty: 45 0RF Discharge Orders: Discharge ED (Routine); Ordered 09/12/24 Ordered By: Deepika Riddle Referrals: Wilmer Altman MD [Primary Care Provider, [facility]] - 4-7 days Discharge Diet: Advance as tolerated Discharge Activity: Resume usual activity Patient Instructions: Leg Edema (ED) Print Language: Palestinian Coding Level of Care Code ED Neurophysiologist for Lenard Gamez
[2024-09-12 21:46] VITALS: BP 141/98; PULSE 79; O2SAT 97
== END 2024-09-12 21:47 | disposition home or self-care (01) ==
PROVIDERS: Emergency Provider Emergency Medicine; PCP Family Medicine
DX: R60.0 Localized edema (principal)
CPT/HCPCS: 93971; 99284